=== PATIENT | male | born 1960 | race Caucasian/White ===

== ENCOUNTER 2021-01-01 04:12 | Emergency (ER) | payer MEDICARE, MEDICAID, SELFPAY ==
[2021-01-01 04:14] VITALS: BP 122/65; BP 139/78; PULSE 116; PULSE 123; RESP 14; TEMP 36.4; O2SAT 96; O2SAT 98; BMI 24.7
--- NOTE | 2021-01-01 05:58 | ED_ITS ---
HPI - Overdose General Chief Complaint: ETOH/Substance Use Stated Complaint: overdose Time Seen by Provider: 01/01/21 04:24 Source: patient and EMS Mode of arrival: EMS History of Present Illness HPI Narrative: This is a 60-year-old male who is brought in by EMS after his friends called. As per EMS the friends felt like patient was unresponsive and administered 12 mg of intranasal Narcan, however EMS states that when they got there he was still drowsy and they provided an additional 2 mg IV. On arrival patient is awake and states that he does not know what is going on he simply drink alcohol. He adamantly denies taking any other substances. Otherwise, he denies any shortness of breath, chest pain/palpitations, abdominal discomfort. Related Data Allergies Allergy/AdvReac Type Severity Reaction Status Date / Time Penicillins Allergy Unknown Unknown Verified 01/01/21 05:58 Review of Systems Review of Systems: Pertinent positives and negatives as stated in HPI 10 point review of systems is otherwise negative. [facility] Past Medical History Source: nursing notes reviewed Social History Social History Advance Directives: No Advance Directives Information Provided: No Physical Exam Vital Signs: Vital Signs: Last Vital Signs Temp 97.6 F 01/01/21 04:14 Pulse 94 01/01/21 07:02 Resp 14 01/01/21 07:02 BP 119/77 01/01/21 07:02 Pulse Ox 100 01/01/21 07:02 Body Mass Index 24.7 VITAL SIGNS: Reviewed. GENERAL: Well developed, well nourished, in no acute distress. HEAD: Normocephalic/atraumatic EYES: PERRLA, EOMI NOSE: Nares patent bilateral OROPHARYNX: no oral lesions noted, posterior pharynx clear LUNGS: Normal breath sounds. No adventitious sounds or accessory muscle use. SpO2<100> CARDIOVASCULAR: Regular rate and rhythm without noted murmurs ABDOMEN: Soft, non-tender, non-distended with bowel sounds. NEUROLOGIC: Alert and oriented x 4. Course Course Course Narrative: This is a 60-year-old male with history and clinical presentation consistent with intoxication unknown substances, however on review of investigations appears to be a combination of alcohol and suspect possible fentanyl use as this is not detectable by our current [facility]INTER[facility] and patient remains drowsy but arousable. Signed out to Dr Avina: Plan to [facility] Reevaluation(s) Reevaluation #1: Patient placed in physician observation because the patient needed more time to detox. At the time observation was started the patient's vital signs were stable, patient is alert and oriented but drowsy, neuro: Nonfocal, CV RRR, lungs clear Time: 06:15 MDM - Overdose Lab Data Labs: Lab Results 01/01/21 01/01/21 Range/Units 06:03 06:12 Urine Opiates Screen Not Detected (Not Detect) Ur Barbiturates Screen Not Detected (Not Detect) Ur Phencyclidine Scrn Not Detected (Not Detect) Ur Amphetamines Screen Not Detected (Not Detect) U Benzodiazepines Scrn Not Detected (Not Detect) Urine Cocaine Screen POSITIVE H (Not Detect) U Marijuana (THC) Screen Not Detected (Not Detect) Ethyl Alcohol 184 mg/dL Discharge Plan Discharge Clinical Impression: Alcoholic intoxication, Substance abuse Patient Disposition: Home, Self-Care Instructions: Alcohol Intoxication (ED), Polysubstance Abuse (ED) Additional Instructions: Do not hesitate to return to the emergency department should you experience any acute worsening of your symptoms. Referrals: Physician,Unknown [Primary Care Provider] - 2 days
[2021-01-01 06:30] LABS: Ethanol 184 mg/dL
[2021-01-01 06:35] LABS: Amphetamine Screen Urine Not Detected (Not Detect); Barbiturates, Urine Not Detected (Not Detect); Benzodiazepines Screen Urine Not Detected (Not Detect); Cannabinoid Screen Urine Not Detected (Not Detect); Cocaine Screen Urine POSITIVE (Not Detect); Opiate Screen Urine Not Detected (Not Detect); Phencyclidine Screen Urine Not Detected (Not Detect)
[2021-01-01 07:02] VITALS: BP 119/77; PULSE 94; RESP 14; O2SAT 100
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
[2021-01-01 07:39] VITALS: O2SAT 97
== END 2021-01-01 10:27 | disposition home or self-care (01) ==
PROVIDERS: Student in an Organized Health Care Education/Training Program; Emergency Provider Emergency Medicine Emergency Medical Services
DX: F19.10 Other psychoactive substance abuse, uncomplicated (principal); R40.4 Transient alteration of awareness; F10.120 Alcohol abuse with intoxication, uncomplicated; Y90.6 Blood alcohol level of 120-199 mg/100 ml
CPT/HCPCS: 36415; 80307; 80320; 99284